=== PATIENT | female | born 1990 | race Caucasian/White ===

== ENCOUNTER 2016-09-13 18:26 | Outpatient (CLI) | payer MEDICAID ==
[~2016-09-13 18:26] MED LIST: PNV91TAB3 PO
[2016-09-13 19:45] LABS: AMNI LOT 5540986
[2016-09-13 20:02] LABS: AMNI OBC PASS; AMNISURE NEGATIVE (NEGATIVE)
== END 2016-09-13 21:20 | disposition home or self-care (01) ==
LOC: LDOP 18:26
PROVIDERS: ATTEND Obstetrics & Gynecology Gynecology
DX: O26.892 Other specified pregnancy related conditions, second trimester (principal); R10.30 Lower abdominal pain, unspecified; Z3A.26 26 weeks gestation of pregnancy
CPT/HCPCS: 36415; 59025; 82731; 84112; 99211; G0463

== ENCOUNTER 2016-10-22 21:23 | Outpatient (CLI) | payer MEDICAID ==
[~2016-10-22] VITALS: Ht 157.5 cm; Wt 79.1 kg
[2016-10-22 21:45] VITALS: BP 124/79
== END 2016-10-22 22:22 | disposition home or self-care (01) ==
LOC: LDOP 21:23
PROVIDERS: ATTEND Obstetrics & Gynecology Gynecology
DX: O26.893 Other specified pregnancy related conditions, third trimester (principal); O46.93 Antepartum hemorrhage, unspecified, third trimester; O26.853 Spotting complicating pregnancy, third trimester; R10.9 Unspecified abdominal pain; Z3A.33 33 weeks gestation of pregnancy
CPT/HCPCS: 59025; 99211; G0463

== ENCOUNTER 2016-12-14 05:05 | Inpatient (IN) | payer MEDICAID ==
[~2016-12-14] VITALS: Ht 157.5 cm; Wt 81.0 kg
[2016-12-14] MEDS ORDERED: D5%-LACTATED RINGERS 1,000 ML IV SCH (05:24)
[2016-12-14] MEDS ORDERED: OXYTOCIN 30U/ 0.9% NaCL 500ML 500 ML IV ONE (05:24)
[2016-12-14] MEDS ORDERED: NEWBORN KIT ONE (05:26)
[2016-12-14] MEDS ORDERED: OXYTOCIN 30U/ 0.9% NaCL 500ML 500 ML ONE ×2 (05:26→06:33)
[2016-12-14] MEDS: LACTATED RINGERS 1,000 ML IV SCH ×4 (05:30→15:09)
[2016-12-14] MEDS ORDERED: TERBUTALINE 1 MG/ML, 1ML IVPush PRN (05:30)
[2016-12-14] MEDS ORDERED: CALCIUM CARBONATE 500 MG TAB.CHEW PO PRN ×2 (05:30→14:00)
[2016-12-14] MEDS ORDERED: FENTANYL PF 100 MCG/2ML IVPush PRN (05:30)
[2016-12-14] MEDS ORDERED: FENTANYL PF 100 MCG/2ML IV PRN (05:30)
[2016-12-14] MEDS ORDERED: ONDANSETRON 2MG/ML, 2ML IVPush PRN (05:30)
[2016-12-14] MEDS: FAMOTIDINE 20 MG TABLET PO SCH ×2 (06:13→21:00)
[2016-12-14] MEDS ORDERED: LIDOCAINE 1%, 20ML ONE ×2 (06:32→06:35)
[2016-12-14] MEDS ORDERED: MISOPROSTOL 200 MCG TABLET ONE (06:32)
[2016-12-14] MEDS ORDERED: FENTANYL/BUPIV./NS/PF 250 ML EPIDCONT ONE (06:33)
[2016-12-14] MEDS ORDERED: ONDANSETRON 2MG/ML, 2ML ONE (06:35)
[2016-12-14] MEDS ORDERED: BUPIVACAINE 0.25% ONE (06:35)
[2016-12-14] MEDS ORDERED: LIDOCAINE/PF 1.5%-EPI 1:200K, 30ML ONE (06:35)
[2016-12-14] MEDS ORDERED: FENTANYL/BUPIV./NS/PF 250 ML EPIDCONT SCH (07:09)
[2016-12-14] MEDS ORDERED: LACTATED RINGERS 1,000 ML IVBOLUS PRN (07:30)
[2016-12-14] MEDS: OXYTOCIN 30U/ 0.9% NaCL 500ML 500 ML IV SCH ×2 (13:41→23:41)
[2016-12-14] MEDS ORDERED: GLYCERIN ADULT SUPP PR PRN (14:00)
[2016-12-14] MEDS ORDERED: METHYLERGONOVINE 0.2 MG/ML IM PRN (14:00)
[2016-12-14] MEDS ORDERED: ACETAMINOPHEN 325 MG TABLET PO PRN ×3 (14:00)
[2016-12-14] MEDS ORDERED: BISACODYL 10 MG SUPP PR PRN (14:00)
[2016-12-14] MEDS ORDERED: MAGNESIUM HYDROXIDE 8%, 30ML UDC PO PRN (14:00)
[2016-12-14] MEDS ORDERED: OXYTOCIN 10 UNITS/ML, 1ML IM PRN (14:00)
[2016-12-14] MEDS ORDERED: CARBOPROST TROMETHAMINE 250 MCG/ML, 1ML IM PRN (14:00)
[2016-12-14] MEDS ORDERED: OXYcodone/APAP 5/325MG TABLET PO PRN ×2 (14:00)
[2016-12-14] MEDS ORDERED: MEASLES,MUMPS&RUBELLA VACC/PF 0.5 ML SQ-VACC PRN (14:00)
[2016-12-14] MEDS ORDERED: ONDANSETRON 2MG/ML, 2ML IV PRN (14:00)
[2016-12-14] MEDS ORDERED: DOCUSATE 100 MG CAPSULE PO PRN (14:00)
[2016-12-14] MEDS ORDERED: METOCLOPRAMIDE 5 MG/ML, 2ML IV PRN (14:00)
[2016-12-14] MEDS ORDERED: MISOPROSTOL 200 MCG TABLET PR PRN (14:00)
[2016-12-14 17:00] VITALS: BP 114/72
[2016-12-14 19:10] VITALS: BP 125/77
[2016-12-14] MEDS: IBUPROFEN 600 MG TABLET PO PRN (20:56)
[2016-12-15] VITALS: BP 116/66
[2016-12-15 03:46] VITALS: BP 117/59
[2016-12-15] MEDS ORDERED: PRENATAL VIT/IRON/FA 1 EACH TABLET ONE (07:18)
[2016-12-15] MEDS: FAMOTIDINE 20 MG TABLET PO SCH (07:22)
[2016-12-15] MEDS: IBUPROFEN 600 MG TABLET PO PRN ×2 (07:23→14:09)
[2016-12-15 07:35] VITALS: BP 125/78
[2016-12-15] MEDS ORDERED: PRENATAL VIT/IRON/FA 1 EACH TABLET PO SCH (09:00)
[2016-12-15] MEDS: OXYTOCIN 30U/ 0.9% NaCL 500ML 500 ML IV SCH (09:41)
[2016-12-15] MEDS ORDERED: OXYC-302 PO (10:34)
[2016-12-15] MEDS ORDERED: IBUP-1222 PO (10:34)
== END 2016-12-15 14:56 | disposition home or self-care (01) | DRG 775 ==
LOC: LDOP 05:05 → LDIP 05:30 → 2NW 16:40
PROVIDERS: ADMIT Obstetrics & Gynecology Gynecology; ATTEND Obstetrics & Gynecology Gynecology
PROC: 10E0XZZ Delivery of Products of Conception, External Approach (ICD-10-PCS; principal; 2016-12-14)
PROC: 0UQMXZZ Repair Vulva, External Approach (ICD-10-PCS; 2016-12-14)
PROC: 00HU33Z Insertion of Infusion Device into Spinal Canal, Percutaneous Approach (ICD-10-PCS; 2016-12-14)
PROC: 3E0R3CZ (ICD-10-PCS; 2016-12-14)
DX: O70.0 First degree perineal laceration during delivery (principal); Z37.0 Single live birth; Z3A.39 39 weeks gestation of pregnancy
CPT/HCPCS: 36415; 85025; 86850; 86900; J2405; J3490; J2590; J3010; J7120